=== PATIENT | male | born 1975 ===

== ENCOUNTER 2022-01-29 14:17 | Emergency (ER) | payer OTHER ==
[~2022-01-29] VITALS: Ht 177.8 cm; Wt 79.4 kg
[2022-01-29] MEDS ORDERED: KETOROLAC TROMETHAMINE 30 MG/ML VIAL IV STA (14:43)
[2022-01-29] MEDS ORDERED: SODIUM CHLORIDE 0.9% 1000ML 1,000 ML IV ONE (14:45)
[2022-01-29] MEDS ORDERED: DEXAMETHASONE SOD PHOS 10 MG/1 ML VIAL IV ONE (14:45)
[2022-01-29] MEDS ORDERED: ACETAMINOPHEN 325 MG TAB PO ONE (15:15)
[2022-01-29 15:27] LABS: BASOPHILS % 0.5 % (0.0-1.0); EOSINOPHILS % 0.5 % (0.0-6.0); HEMATOCRIT 46.5 % (38.2-49.6); LYMPHOCYTES # (AUTO) 1.5 (1.0-3.2); LYMPHOCYTES % 23.1 % (18.0-39.1); MEAN CORPUSCULAR HEMOGLOBIN 31.3 pg (28-32); MEAN CORPUSCULAR HGB CONC 32.3 g/dL (31-35); MEAN CORPUSCULAR VOLUME 97.1 fL (81-99); MONOCYTES # (AUTO) 0.7 (0.2-0.8); MONOCYTES % 10.9 % (4.4-11.3); NEUTROPHILS # (AUTO) 4.1 (2.1-6.9); NEUTROPHILS % 64.5 % (38.7-80.0); PLATELET COUNT 254 x10e3/uL (140-360); RED BLOOD COUNT 4.79 x10e6/uL (4.3-5.7); RED CELL DISTRIBUTION WIDTH 12.5 % (11.7-14.4)
[2022-01-29 15:49] LABS: ALBUMIN 3.8 g/dL (3.5-5.0); ANION GAP 14.8 mmol/L (8-16); CALCIUM 8.6 mg/dL (8.4-10.2); CREATININE, SERUM 1.27 mg/dL (0.72-1.25); POTASSIUM 3.8 mmol/L (3.5-5.1)
[2022-01-29] MEDS ORDERED: BENZONATATE200 MG PO (16:45)
[2022-01-29] MEDS ORDERED: MOTRIN800 MG PEG (16:45)
[2022-01-29 17:01] VITALS: BP 125/93
== END 2022-01-29 17:05 | disposition home or self-care (01) ==
LOC: ER 14:44
DX: R50.9 Fever, unspecified (principal); U07.1 COVID-19; R05.9 Cough, unspecified; R51.9 Headache, unspecified
CPT/HCPCS: 36415; 71045; 80053; 85025; 85379; 93005; 99284; J1100; J1885; J7030